=== PATIENT | male | born 2000 | race African-American/Black ===

== ENCOUNTER 2025-01-05 10:17 | Emergency (ER) | payer MEDICAID ==
[~2025-01-05] VITALS: Ht 188 cm; Wt 77.0 kg
[2025-01-05 10:23] VITALS: O2SAT 100
[2025-01-05] MEDS ORDERED: ACETAMINOPHEN 1000MG/100ML 100 ML IV SCH (10:30)
[2025-01-05] MEDS ORDERED: FENTANYL CITRATE/PF 50MCG/ML 2ML VIAL IV SCH (10:30)
[2025-01-05 11:11] VITALS: BP 125/68; PULSE 76; RESP 16; TEMP 36.9; O2SAT 100
== END 2025-01-05 11:12 | disposition home or self-care (01) ==
LOC: ER 10:17
DX: S43.004A Unspecified dislocation of right shoulder joint, initial encounter (principal)
CPT/HCPCS: 23650; 99284; Z7610; A4606; J0131